=== PATIENT | female | born 1975 | race Two or more races ===

== ENCOUNTER 2017-05-30 19:35 | Emergency (ER) | payer BC ==
[2017-05-30] MEDS ORDERED: Ketorolac 60 MG/2 ML SDV IM ONE (21:50)
--- NOTE | 2017-05-30 21:54 | EDM.PDOC ---
ED HPI GENERAL MEDICAL PROBLEM - General Chief Complaint: Lower Extremity Injury/Pain Stated Complaint: RIGHT ANKLE PAIN Time Seen by Provider: 05/30/17 20:30 Source of Information: Reports: Patient History Limitations: Reports: No Limitations - History of Present Illness INITIAL COMMENTS - FREE TEXT/NARRATIVE: HISTORY AND PHYSICAL: History of present illness: [Patient comes to the emergency room complaining of right ankle pain. She states that she was out walking her dog this evening on unpaved ground. She stepped in a hole twisting her right ankle. She heard a snapping sensation and experienced immediate pain. This occurred about 1 hour prior to ER arrival. She' s not taken any medication for her symptoms. Denies numbness and tingling. Pain radiates up her lower leg.] Review of systems: As per history of present illness and below otherwise all systems reviewed and negative. Past medical history: As per history of present illness and as reviewed below otherwise noncontributory. Surgical history: As per history of present illness and as reviewed below otherwise noncontributory. Social history: No reported history of drug or alcohol abuse. Family history: As per history of present illness and as reviewed below otherwise noncontributory. Physical exam: HEENT: Atraumatic, normocephalic. Extremities: Moderate swelling over the right lateral malleolus with mild ecchymosis. Is tender with palpation. Reduced range of motion due to pain and swelling. Neurovascular intact. Neuro: Awake, alert, oriented. Motor and sensory unremarkable throughout. Exam nonfocal. Diagnostics: [Right ankle x-ray] Therapeutics: [Toradol 60 mg IM] Impression: [R ankle pain] Plan: [X-ray report shows moderate soft tissue swelling as well as a 4 mm circumscribed ossified density adjacent to the tip of the lateral malleolus. Nondisplaced avulsion fracture cannot be ruled out but this may be an ununited accessory ossicle which would be chronic. The patient is placed in a walking boot and given crutches and instructed to be nonweightbearing until she can follow-up with orthopedist. She's given Toradol 60 mg IM in the ER today. She is given referral to see the orthopedist. She is in agreement with today's plan. ] Definitive disposition and diagnosis as appropriate pending reevaluation and review of above. right ankle Pain Score (Numeric/FACES): 7 - Related Data Allergies Allergy/AdvReac Type Severity Reaction Status Date / Time loratadine Allergy Anaphylactic Verified 05/30/17 20:34 Shock Penicillins Allergy Hives Verified 05/30/17 20:34 Home Meds: Home Meds . 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 Musculoskeletal History: Reports: None Neurological History: Reports: None Psychiatric History: Reports: None Endocrine/Metabolic History: Reports: None Hematologic History: Reports: None Oncologic (Cancer) History: Reports: None Dermatologic History: Reports: None - Infectious Disease History Infectious Disease History: Reports: None - Past Surgical History Female Surgical History: Reports: None, Hysterectomy Social & Family History - Family History Family Medical History: Noncontributory - Tobacco Use Smoking Status *Q: Never Smoker - Recreational Drug Use Recreational Drug Use: No Review of Systems - Review of Systems Review Of Systems: ROS reveals no pertinent complaints other than HPI. ED EXAM, GENERAL - Physical Exam Exam: See Below Course - Vital Signs Last Recorded V/S: Last Vital Signs Temp 98.5 F 05/30/17 20:27 Pulse 80 05/30/17 22:10 Resp 18 05/30/17 22:10 BP 137/89 05/30/17 22:10 Pulse Ox 96 05/30/17 22:10 - Orders/Labs/Meds Meds: Medications Discontinued Medications Generic Name Dose Route Start Last Admin Trade Name Pennie PRN Reason Stop Dose Admin Ketorolac Tromethamine 60 mg 05/30/17 21:50 05/30/17 21:57 Toradol IM 05/30/17 21:51 60 mg ONETIME ONE Administration Departure - Departure Time of Disposition: 21:51 Disposition: Home, Self-Care 01 Condition: Good Clinical Impression: Right ankle pain - Discharge Information Instructions: Ankle Pain Referrals: PCP,None [Primary Care Provider] - Forms: ED Department Discharge Additional Instructions: The following information is given to patients seen in the emergency department who are being discharged to home. This information is to outline your options for follow-up care. We provide all patients seen in our emergency department with a follow-up referral. The need for follow-up, as well as the timing and circumstances, are variable depending upon the specifics of your emergency department visit. If you don't have a primary care physician on staff, we will provide you with a referral. We always advise you to contact your personal physician following an emergency department visit to inform them of the circumstance of the visit and for follow-up with them and/or the need for any referrals to a consulting specialist. The emergency department will also refer you to a specialist when appropriate. This referral assures that you have the opportunity for follow-up care with a specialist. All of these measure are taken in an effort to provide you with optimal care, which includes your follow-up. Under all circumstances we always encourage you to contact your private physician who remains a resource for coordinating your care. When calling for follow-up care, please make the office aware that this follow-up is from your recent emergency room visit. If for any reason you are refused follow-up, please contact the [facility] emergency department at and asked to speak to the emergency department charge nurse. [facility] [address] [place] [address], [address] [place] [address] Follow-up with the orthopedic clinic in the next several days. Call their office tomorrow morning to schedule an appointment. Tylenol alternating with ibuprofen as needed for discomfort. Rest ankle, apply ice, wear walking boot, no weightbearing, use crutches and elevate ankle. Return to ER as needed as discussed.
[2017-05-30 22:33] VITALS: BP 137/89
--- NOTE | 2017-05-31 10:19 | CR ---
EXAM DATE: 05/30/17 PATIENT'S AGE: 41 Patient: CHANDU RAGLAND Facility: [place], [place] Site . Site : 1975 Study: XRay Extremity ankle [id number]/26/2017 8:48:36 PM Ordering Physician: Doctor Kent Final Report: INDICATION: Ankle injury. COMPARISON: None. FINDINGS/IMPRESSION: Right ankle, 2 views. Moderate soft tissue swelling over the lateral malleolus and anterior to the ankle. 4 millimeter fairly circumscribed ossified density adjacent to the tip of the lateral malleolus may represent a nondisplaced avulsion fracture versus an ununited accessory ossicle, and is favored to be chronic. No other evidence for fracture. Normal ankle mortise. Dictated by Clinton Wyatt MD @ 05/30/2017 9:42:37 PM Dictated by: Clinton Wyatt MD @ 05/30/2017 21:43:28 (Electronic Signature) Report Signed by Proxy. CRISTINA
== END 2017-05-30 22:10 | disposition home or self-care (01) ==
LOC: MW.ED 19:35
DX: S90.01XA Contusion of right ankle, initial encounter (principal); Z88.0 Allergy status to penicillin; Z88.8 Allergy status to other drugs, medicaments and biological substances; Z90.710 Acquired absence of both cervix and uterus; X50.1XXA Overexertion from prolonged static or awkward postures, initial encounter; Y93.K1 Activity, walking an animal
CPT/HCPCS: 73600; 96372; 99283; J1885; 99282

== ENCOUNTER 2018-03-10 15:32 | Emergency (ER) | payer BC ==
[2018-03-10] MEDS ORDERED: Diphtheria,Pertussis(Acell),Tetanus Vaccine 0.5 ML Syringe IM ONE (15:46)
[2018-03-10] MEDS ORDERED: Bacitracin Oint 1 GM U/D Packet TOP ONE (15:46)
[2018-03-10 15:48] VITALS: BP 119/72
--- NOTE | 2018-03-10 15:51 | EDM.PDOC ---
ED HPI GENERAL MEDICAL PROBLEM - General Chief Complaint: Lower Extremity Injury/Pain Stated Complaint: STEPPED ON A KATINA LIBORIO PEN L FOOT Time Seen by Provider: 03/10/18 15:36 Source of Information: Reports: Patient History Limitations: Reports: No Limitations - History of Present Illness INITIAL COMMENTS - FREE TEXT/NARRATIVE: HISTORY AND PHYSICAL: History of present illness: Patient is a 42-year-old female who presents to the emergency room with complaints of a puncture wound to the right lower extremity. She states she was walking when a katina queenie pin had punctured through her flip-flop sandal into the solar surface/pad of her right foot. She did remove the queenie pin without difficulty but did have a puncture site which appears slightly red and painful with palpation. Unsure of her last tetanus shot. Review of systems: As per history of present illness and below otherwise all systems reviewed and negative. Past medical history: As per history of present illness and as reviewed below otherwise noncontributory. Surgical history: As per history of present illness and as reviewed below otherwise noncontributory. Social history: No reported history of drug or alcohol abuse. Family history: As per history of present illness and as reviewed below otherwise noncontributory. Physical exam: General: Well-developed and well-nourished 42-year-old female. Alert and oriented. Nontoxic appearing and in no acute distress. HEENT: Atraumatic, normocephalic, pupils equal and reactive bilaterally, negative for conjunctival pallor or scleral icterus, mucous membranes moist, throat clear, neck supple, nontender, trachea midline. No drooling or trismus noted. No meningeal signs Lungs: Clear to auscultation, breath sounds equal bilaterally, chest nontender. Heart: S1S2, regular rate and rhythm without overt murmur Abdomen: Soft, nondistended, nontender. Negative for masses or hepatosplenomegaly. Negative for costovertebral tenderness. Pelvis: Stable nontender. Genitourinary: Deferred. Rectal: Deferred. Skin: Puncture site noted to the right solar surface near the base of the second and third toe. Otherwise skin is Intact, warm, dry. No lesions or rashes noted. Extremities: Moves all extremities per self without difficulty or deficits, strong pedal pulses bilaterally, negative for cords or calf pain. Neurovascular unremarkable. Neuro: Awake, alert, oriented. Cranial nerves II through XII unremarkable. Cerebellum unremarkable. Motor and sensory unremarkable throughout. Exam nonfocal. Notes: Patient states she does spend a lot of time in flip-flops around dirt etc... concerned of getting an infection. Patient is adamant that there is no foreign body left in the foot, declines an x-ray. Patient's tetanus will be updated. Will be placed on Keflex twice a day 7 days. Signs and symptoms that would prompt her to return to the emergency room were reviewed and discussed. She voices understanding and is agreeable to plan of care. Denies any further questions at this time. Diagnostics: [] Therapeutics: Tdap, bacitracin, wound care Impression: Puncture wound Plan: 1. Please keep the area clean and dry. Continue to monitor for signs of infection. 2. Take the antibiotic as directed. You may use Tylenol and/or ibuprofen as needed for pain management. 3. Follow-up with your primary care provider in the next 1-2 days. Return to the ED as needed and as discussed. Definitive disposition and diagnosis as appropriate pending reevaluation and review of above. - Related Data Allergies Allergy/AdvReac Type Severity Reaction Status Date / Time loratadine Allergy Anaphylactic Verified 03/10/18 15:45 Shock Penicillins Allergy Hives Verified 03/10/18 15:45 Home Meds: Home Meds . 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 Musculoskeletal History: Reports: None Neurological History: Reports: None Psychiatric History: Reports: None Endocrine/Metabolic History: Reports: None Hematologic History: Reports: None Oncologic (Cancer) History: Reports: None Dermatologic History: Reports: None - Infectious Disease History Infectious Disease History: Reports: None - Past Surgical History Female Surgical History: Reports: None, Hysterectomy Social & Family History - Family History Family Medical History: Noncontributory Review of Systems - Review of Systems Review Of Systems: ROS reveals no pertinent complaints other than HPI. ED EXAM, GENERAL - Physical Exam Exam: See Below (See dictation) Course - Orders/Labs/Meds Orders: Active Orders 24 hr Category Date Time Status Communication Order [RC] STAT Care 03/10/18 15:46 Ordered Vaccines to be Administered [RC] PER UNIT ROUTINE Care 03/10/18 15:46 Ordered Bacitracin [Bacitracin Oint 1 GM] Med 03/10/18 15:46 Once 1 dose TOP ONETIME ONE Diphth,Pertuss(Acell),Tet Vac [Adacel] Med 03/10/18 15:46 Once 0.5 ml IM .ONCE ONE Departure - Departure Time of Disposition: 15:51 Disposition: Home, Self-Care 01 Clinical Impression: Puncture wound - Discharge Information Referrals: Meera Carvajal MD [Primary Care Provider] - Additional Instructions: The following information is given to patients seen in the emergency department who are being discharged to home. This information is to outline your options for follow-up care. We provide all patients seen in our emergency department with a follow-up referral. The need for follow-up, as well as the timing and circumstances, are variable depending upon the specifics of your emergency department visit. If you don't have a primary care physician on staff, we will provide you with a referral. We always advise you to contact your personal physician following an emergency department visit to inform them of the circumstance of the visit and for follow-up with them and/or the need for any referrals to a consulting specialist. The emergency department will also refer you to a specialist when appropriate. This referral assures that you have the opportunity for follow-up care with a specialist. All of these measure are taken in an effort to provide you with optimal care, which includes your follow-up. Under all circumstances we always encourage you to contact your private physician who remains a resource for coordinating your care. When calling for follow-up care, please make the office aware that this follow-up is from your recent emergency room visit. If for any reason you are refused follow-up, please contact the [facility] Emergency Department at and asked to speak to the emergency department charge nurse. [facility] [address] [place] [id number] 1. Please keep the area clean and dry. Continue to monitor for signs of infection. 2. Take the antibiotic as directed. You may use Tylenol and/or ibuprofen as needed for pain management. 3. Follow-up with your primary care provider in the next 1-2 days. Return to the ED as needed and as discussed. - My Orders Last 24 Hours: My Active Orders 03/10/18 15:46 Communication Order [RC] STAT Vaccines to be Administered [RC] PER UNIT ROUTINE Bacitracin [Bacitracin Oint 1 GM] 1 dose TOP ONETIME ONE Diphth,Pertuss(Acell),Tet Vac [Adacel] 0.5 ml IM .ONCE ONE - Assessment/Plan Last 24 Hours: My Active Orders 03/10/18 15:46 Communication Order [RC] STAT Vaccines to be Administered [RC] PER UNIT ROUTINE Bacitracin [Bacitracin Oint 1 GM] 1 dose TOP ONETIME ONE Diphth,Pertuss(Acell),Tet Vac [Adacel] 0.5 ml IM .ONCE ONE
== END 2018-03-10 16:07 | disposition home or self-care (01) ==
LOC: MW.ED 15:32
DX: S91.134A Puncture wound without foreign body of right lesser toe(s) without damage to nail, initial encounter (principal); Z88.8 Allergy status to other drugs, medicaments and biological substances; Z23 Encounter for immunization; Z88.0 Allergy status to penicillin; W26.8XXA Contact with other sharp object(s), not elsewhere classified, initial encounter
CPT/HCPCS: 90471; 90715; 99282-25